=== PATIENT | male | born 1980 | race Caucasian/White ===

== ENCOUNTER 2017-05-19 14:49 | Emergency (ER) | payer OTHER ==
[~2017-05-19] VITALS: Ht 185.4 cm; Wt 111.1 kg
[2017-05-19] MEDS ORDERED: IBUP800 PO (16:59)
[2017-05-19] MEDS ORDERED: Percocet 10-321 EACH PO (16:59)
== END 2017-05-19 18:19 | disposition home or self-care (01) ==
LOC: ER 14:49
DX: S63.104A Unspecified dislocation of right thumb, initial encounter (principal); S43.102A Unspecified dislocation of left acromioclavicular joint, initial encounter; S91.002A Unspecified open wound, left ankle, initial encounter; S80.212A Abrasion, left knee, initial encounter; S30.810A Abrasion of lower back and pelvis, initial encounter; S50.312A Abrasion of left elbow, initial encounter; S60.811A Abrasion of right wrist, initial encounter; V27.4XXA Motorcycle driver injured in collision with fixed or stationary object in traffic accident, initial encounter
CPT/HCPCS: 29125; 36415; 71046; 72040; 73030; 73140; 96374; 96375; 96376; 99284; J1170; J1885; J2405; L0160

== ENCOUNTER 2017-05-21 08:48 | Day surgery (SDC) | payer OTHER ==
[~2017-05-21] VITALS: Ht 182.9 cm; Wt 110.7 kg
[~2017-05-21 08:48] MED LIST: IBUP800 PO; Percocet 10-321 EACH PO
== END 2017-05-21 22:52 | disposition home or self-care (01) ==
LOC: ORSCMMR 08:48
PROVIDERS: Orthopaedic Surgery
PROC: 0RSK04Z Reposition Left Shoulder Joint with Internal Fixation Device, Open Approach (ICD-10-PCS; principal; 2017-05-21 11:00)
DX: S43.102A Unspecified dislocation of left acromioclavicular joint, initial encounter (principal); V29.9XXA Motorcycle rider (driver) (passenger) injured in unspecified traffic accident, initial encounter
CPT/HCPCS: 73000; 73140; C1713; C1762; J0171; J0690; J1100; J1885; J2250; J2405; J2710; J3010; J7120

== ENCOUNTER → 2017-05-28 | Outpatient (CLI) | payer OTHER | LOC: LAB 13:15 | DX: L97.309 Non-pressure chronic ulcer of unspecified ankle with unspecified severity (principal) | CPT/HCPCS: 87070; 87075; 87205 ==

== ENCOUNTER 2022-08-28 15:04 | Emergency (ER) | payer OTHER ==
[~2022-08-28] VITALS: Ht 185.4 cm; Wt 111.1 kg
[2022-08-28 15:23] LABS: BASOPHILS ABSOLUTE AUTO 0.02 K/mm3 (0.00-0.23); BASOPHILS PERCENT AUTO 0 % (0-2); EOSINOPHILS ABSOLUTE AUTO 0.04 K/mm3 (0.00-0.68); EOSINOPHILS PERCENT AUTO 0 % (0-6); Hematocrit 50.9 % (37.0-53.0); Hemoglobin 17.4 g/dL (13.5-17.5); IMMATURE GRAN ABSOLUTE AUTO 0.02 K/mm3 (0.00-0.10); IMMATURE GRAN PERCENT AUTO 0 % (0-1); LYMPHOCYTES ABSOLUTE AUTO 1.87 K/mm3 (0.84-5.20); LYMPHOCYTES PERCENT AUTO 20 % (21-46); MONOCYTES ABSOLUTE AUTO 0.76 K/mm3 (0.16-1.47); MONOCYTES PERCENT AUTO 8 % (4-13); Mean Corpuscular HGB 30.1 pg (26.0-34.0); Mean Corpuscular HGB Conc 34.2 g/dL (31.5-36.5); Mean Corpuscular Volume 88 fL (80-100); Mean Platelet Volume 10.5 fL (9.1-12.4); NEUTROPHILS ABSOLUTE AUTO 6.47 K/mm3 (1.96-9.15); NEUTROPHILS PERCENT AUTO 71 % (41-73); Platelet Count 325 K/mm3 (150-400); RDW Coefficient Variation 13.5 % (11.7-14.2); RDW Standard Deviation 43.3 fL (35.1-46.3); Red Blood Cell Count 5.78 M/mm3 (4.30-5.90); White Blood Cell Count 9.18 K/mm3 (4.00-11.30)
[2022-08-28 15:49] LABS: Albumin, Blood 4.1 g/dL (3.4-5.0); Albumin/Globulin Ratio 1.2 (0.8-1.8); Bilirubin, Total 0.7 mg/dL (0.1-1.0); Bun/Creatinine Ratio 8.8 (12.0-20.0); Calcium, Blood 9.4 mg/dL (8.5-10.1); Creatinine, Blood 1.14 mg/dL (0.60-1.20); Globulin, Blood 3.3 g/dL (2.2-4.0); Total Protein, Blood 7.4 g/dL (6.4-8.2)
[2022-08-28 19:00] VITALS: BP 120/92
== END 2022-08-28 20:39 | disposition home or self-care (01) ==
LOC: ER 15:04
PROVIDERS: Physician Assistant
DX: R94.31 Abnormal electrocardiogram [ECG] [EKG] (principal)
CPT/HCPCS: 36415; 71046; 80053; 83880; 84484; 85025; 93005; 93010; 99285-25

== ENCOUNTER 2022-12-03 13:33 | Day surgery (SDC) | payer OTHER ==
[~2022-12-03] VITALS: Ht 185.4 cm; Wt 108.6 kg
[2022-12-03 15:37] VITALS: BP 105/71
== END 2022-12-03 15:45 | disposition home or self-care (01) ==
LOC: ORSCSDS 13:33
PROVIDERS: Surgery
PROC: 0DBM8ZX Excision of Descending Colon, Via Natural or Artificial Opening Endoscopic, Diagnostic (ICD-10-PCS; principal; 2022-12-03 14:45)
DX: Z12.11 Encounter for screening for malignant neoplasm of colon (principal); Z83.71 Family history of colonic polyps; K63.5 Polyp of colon; Z79.899 Other long term (current) drug therapy
CPT/HCPCS: 88305; J0461; J2001; J2405; J2704; J7120; Q9968

== ENCOUNTER 2024-10-30 17:53 | Emergency (ER) | payer OTHER ==
[~2024-10-30] VITALS: Ht 185.4 cm; Wt 102.1 kg
[2024-10-30 18:03] VITALS: BP 134/109
[2024-10-30] MEDS ORDERED: METO25ER PO (18:06)
[2024-10-30 18:28] LABS: BASOPHILS ABSOLUTE AUTO 0.02 K/mm3 (0.00-0.23); BASOPHILS PERCENT AUTO 0 % (0-2); EOSINOPHILS ABSOLUTE AUTO 0.09 K/mm3 (0.00-0.68); EOSINOPHILS PERCENT AUTO 1 % (0-6); Hemoglobin 18.2 g/dL (13.5-17.5); IMMATURE GRAN ABSOLUTE AUTO 0.06 K/mm3 (0.00-0.10); IMMATURE GRAN PERCENT AUTO 1 % (0-1); LYMPHOCYTES ABSOLUTE AUTO 2.25 K/mm3 (0.84-5.20); LYMPHOCYTES PERCENT AUTO 19 % (21-46); MONOCYTES ABSOLUTE AUTO 0.75 K/mm3 (0.16-1.47); MONOCYTES PERCENT AUTO 6 % (4-13); Mean Corpuscular HGB 30.5 pg (26.0-34.0); Mean Corpuscular HGB Conc 34.3 g/dL (31.5-36.5); Mean Corpuscular Volume 89 fL (80-100); Mean Platelet Volume 10.5 fL (9.1-12.4); NEUTROPHILS ABSOLUTE AUTO 8.57 K/mm3 (1.96-9.15); NEUTROPHILS PERCENT AUTO 73 % (41-73); Platelet Count 224 K/mm3 (150-400); RDW Coefficient Variation 13.5 % (11.7-14.2); Red Blood Cell Count 5.97 M/mm3 (4.30-5.90); White Blood Cell Count 11.74 K/mm3 (4.00-11.30)
[2024-10-30 19:51] LABS: Albumin/Globulin Ratio 1.3 (0.8-1.8); Bilirubin, Total 0.4 mg/dL (0.1-1.0); Calcium, Blood 9.3 mg/dL (8.5-10.1); Creatinine, Blood 1.06 mg/dL (0.60-1.20)
[2024-10-30] MEDS ORDERED: Ondansetron HCl 2 MG / ML 2ML Vial IV ONE (21:00)
[2024-10-30] MEDS ORDERED: Meclizine HCl 25 MG Tab PO ONE (21:00)
[2024-10-30] MEDS ORDERED: RX Prepack 2 Tabs Ondansetron ODT 4MG UD ONE (21:40)
== END 2024-10-30 21:57 | disposition home or self-care (01) ==
LOC: ER 17:53
PROVIDERS: Emergency Medicine
DX: R42 Dizziness and giddiness (principal); R51.9 Headache, unspecified; Z79.899 Other long term (current) drug therapy
CPT/HCPCS: 70450; 80053; 85025; 93005; 93010; 96374; 99284-25; A9270; J2405

== ENCOUNTER 2024-10-31 13:13 | Emergency (ER) | payer OTHER ==
[~2024-10-31] VITALS: Ht 185.4 cm; Wt 102.1 kg
[~2024-10-31 13:13] MED LIST changes: +METO25ER PO
[2024-10-31 13:25] VITALS: BP 112/87
== END 2024-10-31 18:04 | disposition home or self-care (01) ==
LOC: ER 13:13
DX: R42 Dizziness and giddiness (principal); R11.0 Nausea; Z79.899 Other long term (current) drug therapy
CPT/HCPCS: 99283